=== PATIENT | male | born 1985 | race Caucasian/White ===

== ENCOUNTER → 2017-03-01 | Outpatient (CLI) | payer OTHER ==
--- NOTE | 2017-03-01 14:35 | DIAGNOSTIC IMAGING REPORT ---
L-SPINE MIN 4 VIEWS ROUTINE HISTORY: Pain M54.5 Acute lumbar back [id number] COMPARISON: None. FINDINGS: There is no fracture. No subluxation. Disc spaces are preserved. IMPRESSION: No fracture or subluxation within the lumbar spine. The above report was generated using voice recognition software. It may contain grammatical, syntax or spelling errors. Electronically signed by: Roberto Jane M.D. 03/01/2017 2:34 PM Dictated Date/Time: 03/01/2017 2:33 PM
== END | disposition home or self-care (01) ==
LOC: C.RAD1850 14:21
PROVIDERS: ATTEND Physician Assistant Medical
DX: M54.5 Low back pain (principal)